=== PATIENT | female | born 1985 | race African-American/Black ===

== ENCOUNTER 2021-03-17 17:21 | Emergency (ER) | payer MEDICAID ==
[~2021-03-17] VITALS: Ht 160 cm; Wt 61.3 kg
[2021-03-17 22:23] VITALS: BP 140/85
[2021-03-18] MEDS: FAMOTIDINE 20 MG/2 ML VIAL IVP ONE
[2021-03-18] MEDS: ONDANSETRON PF 4 MG/2 ML VIAL. IVP ONE (00:01)
[2021-03-18] MEDS ORDERED: FAMOTIDINE 20 MG TABLET. ONE (00:06)
[2021-03-18] MEDS: ONDANSETRON ODT 4 MG TAB.RAPDIS. PO ONE (00:09)
[2021-03-18] MEDS: FAMOTIDINE 20 MG TABLET. PO ONE (00:09)
[2021-03-18] MEDS: LIDO:MAALOX 1:1 20 ML SINGLE DOSE. SWSW ONE (00:09)
[2021-03-18 00:24] LABS: BILIRUBIN,URINE SMALL (NEG); CLARITY,URINE CLEAR; COLOR,URINE AMBER; NITRITE,URINE NEGATIVE (NEG); PROTEIN,URINE 30 mg/dL (NEG-TRACE)
[2021-03-18 00:31] LABS: BARBITURATES NEG (NEG); BENZODIAZEPINES NEG (NEG); CANNABINOIDS NEG (NEG); COCAINE POS (NEG); METHADONE NEG (NEG); OPIATES NEG (NEG); PHENCYCLIDINE NEG (NEG)
[2021-03-18 00:32] LABS: BACTERIA,URINE MODERATE /HPF (0-FEW)
[2021-03-18 00:34] LABS: AMPHETAMINE/METHAMPHETAMINE NEG (NEG)
[2021-03-18] MEDS ORDERED: DICY20TA PO (01:18)
[2021-03-18] MEDS ORDERED: ONDA4TAB12 PO (01:18)
[2021-03-18] MEDS ORDERED: FAMO20TA5 PO (01:18)
--- NOTE | 2021-03-18 01:19 | PHYS DOC ---
Past Medical History Past Surgical History: Other Additional Past Surgical Histo: hernia repair Smoking Status: Never Smoker Alcohol Use: Occasionally General Adult EDM: Chief Complaint: ABDOMINAL PAIN HPI: HPI: Patient is a 35 year old female who presents to the ED today complaining of 10 out of 10 epigastric abdominal pain, symptoms have been going on intermittently for months. Patient is also complaining of nausea and vomiting. She reports vomiting twice in the last 24 hours. Patient denies anything specifically exacerbating or relieving her pain. She is very decisive in her HPI. She states she is she has been evaluated before for this pain. She states she was seen at [facility] a month ago had a full work-up and was given GI cocktail, Pepcid and Zofran. She states she was told to follow-up with GI for an EGD. She states she has an appointment with her PCP on March 26, 2021. She presents today requesting something for her pain. She states there is nothing new about her pain. Review of Systems: Review of Systems: Constitutional: Denies fever or chills. [] Eyes: Denies change in visual acuity. [] HENT: Denies nasal congestion or sore throat. [] Respiratory: Denies cough or shortness of breath. [] Cardiovascular: Denies chest pain or edema. [] GI: Reports epigastric abdominal pain with nausea and vomiting, denies bloody stools or diarrhea. [] : Denies dysuria. [] Musculoskeletal: Denies back pain or joint pain. [] Integument: Denies rash. [] Neurologic: Denies headache, focal weakness or sensory changes. [] ] Psychiatric: Denies depression or anxiety. [] Heart Score: C/O Chest Pain: N/A Risk Factors: Risk Factors: DM, Current or recent (<one month) smoker, HTN, HLP, family history of CAD, obesity. Risk Scores: Score 0 - 3: 2.5% MACE over next 6 weeks - Discharge Home Score 4 - 6: 20.3% MACE over next 6 weeks - Admit for Clinical Observation Score 7 - 10: 72.7% MACE over next 6 weeks - Early Invasive Strategies Current Medications: Current Medications Medications (Trade) Dose Ordered Sig/Yamilex Start Time Stop Time Status Last Admin Dose Admin Famotidine (Pepcid Vial) 20 mg 1X ONCE 03/18/21 00:30 03/18/21 00:03 DC Famotidine (Pepcid) 20 mg STK-MED ONCE 03/18/21 00:06 03/18/21 00:06 DC Multi-Ingredient Mouthwash/Gargle (Gi Cocktail) 20 ml 1X ONCE 03/18/21 00:30 03/18/21 00:31 DC 03/18/21 00:09 20 ML Ondansetron HCl (Zofran Odt) 4 mg 1X ONCE 03/18/21 00:30 03/18/21 00:31 DC 03/18/21 00:09 4 MG Ondansetron HCl (Zofran) 4 mg 1X ONCE 03/18/21 00:30 03/18/21 00:03 DC Allergies: Allergies: Allergies Coded Allergies Type Severity Reaction Last Updated Verified No Known Drug Allergies 03/17/21 No Physical Exam: PE: Constitutional: Well developed, well nourished, no acute distress, non-toxic appearance. [] HENT: Normocephalic, atraumatic, bilateral external ears normal, oropharynx moist, no oral exudates, nose normal. [] Eyes: PERRLA, EOMI, conjunctiva normal, no discharge. [] Neck: Normal range of motion, no tenderness, supple, no stridor. [] Cardiovascular:Heart rate regular rhythm, no murmur [] Lungs & Thorax: Bilateral breath sounds clear to auscultation [] Abdomen: Bowel sounds normal, soft, tenderness to the epigastric abdomen, no right upper quadrant or right lower quadrant tenderness, no masses, no pulsatile masses. [] Skin: Warm, dry, no erythema, no rash. [] Back: No tenderness, no CVA tenderness. [] Extremities: No tenderness, no cyanosis, no clubbing, ROM intact, no edema. [] Neurologic: Alert and oriented X 3, normal motor function, normal sensory function, no focal deficits noted. [] Psychologic: Affect normal, judgement normal, mood normal. [] Current Patient Data: Labs: Laboratory Tests Test 03/18/21 00:15 03/18/21 00:16 Urine Collection Type Void Urine Color [place] Urine Clarity Clear Urine pH 6.0 (<5.0-8.0) Urine Specific [place] >=1.030 (1.000-1.030) Urine Protein 30 mg/dL (NEG-TRACE) Urine Glucose (UA) Negative mg/dL (NEG) Urine Ketones (Stick) >=80 mg/dL (NEG) Urine Blood Negative (NEG) Urine Nitrite Negative (NEG) Urine Bilirubin Small (NEG) Urine Urobilinogen Dipstick 1.0 mg/dL (0.2 mg/dL) Urine Leukocyte Esterase Negative (NEG) Urine RBC 1-2 /HPF (0-2) Urine WBC 1-4 /HPF (0-4) Urine Squamous Epithelial Cells Many /LPF Urine Bacteria Moderate /HPF (0-FEW) Urine Mucus Mod /LPF Urine Opiates Screen Neg (NEG) Urine Methadone Screen Neg (NEG) Urine Barbiturates Neg (NEG) Urine Phencyclidine Screen Neg (NEG) Urine Amphetamine/Methamphetamine Neg (NEG) Urine Benzodiazepines Screen Neg (NEG) Urine Cocaine Screen Pos (NEG) Urine Cannabinoids Screen Neg (NEG) Urine Ethyl Alcohol Neg (NEG) POC Urine HCG, Qualitative Hcg negative (Negative) Vital Signs: Vital Signs Date Time Temp Pulse Resp B/P (MAP) Pulse Ox O2 Delivery O2 Flow Rate FiO2 03/17/21 22:23 94 18 140/85 (103) 99 Room Air 03/17/21 17:40 98.8 98.8 EKG: EKG: [] Radiology/Procedures: Radiology/Procedures: [] Course & Med Decision Making: Course & Med Decision Making Pertinent Labs and Imaging studies reviewed. (See chart for details) This is a 35-year-old female patient presenting to the ED today complaining of epigastric pain that has been going on for months. Patient reports being seen at [facility] month ago and was worked out, she states the request that she follows up with a GI doctor for EGD if her pain persist. She states she has not made an appointment with the GI doctor but has an appointment with her PCP on March 26, 2021. She was given Zofran, GI cocktail and famotidine UDS positive for cocaine use. Negative for nitrites, negative for leukocytes. I inquired from patient about this cocaine use. She states she was drinking on Monday and used cocaine. Informed patient I will send her home to follow-up with GI for her EGD as well as PCP. Patient started begging for pain medicine. She asked me with pain medicine I will send her home with. Informed will give a famotidine, prednisone and dicyclomine. Patient stated this will not work for her. She states she came "all this way" for pain medicine. Informed patient I do not have any indication of sending her home with anything stronger than what is mentioned. Recommended Tylenol or Motrin. She states those do not work for her. Informed patient we will not send her home with any narcotics. She started begging and pleading her case for pain medicine. Informed patient she can follow-up with GI, pain clinic and PCP otherwise there is no indication for any narcotics from the ED. Dragon Disclaimer: Dragon Disclaimer: This electronic medical record was generated, in whole or in part, using a voice recognition dictation system. Departure Departure Impression: Primary Impression: Cocaine use Additional Impression: Epigastric pain Disposition: HOME / SELF CARE / HOMELESS Condition: STABLE Referrals: NO PCP (PCP) SCARLETT AMBRIZ MD follow up the next 1-2 weeks or when they have an opening JENNIFER LARKIN MD follow up on 03-26-2021 as scheduled LUCHO VOSS MD follow up in the next 1-2 weeks Patient Instructions: Abdominal Pain (Nonspecific), Cocaine Abuse and Chemical Dependency Additional Instructions: You were evaluated in the emergency room for epigastric abdominal pain. We provided you a pain clinic doctor and GI doctor, please follow-up with them as soon as possible. Also follow-up with your primary care doctor on March 26, 2021 Scripts Famotidine (FAMOTIDINE) 20 Mg Tablet 20 MG PO DAILY, #14 TAB Prov: STEVEN MARTIN MANAGER OUTPATIENT 03/18/21 Dicyclomine Hcl (DICYCLOMINE HCL) 20 Mg Tablet 1 TAB PO TID, #30 TAB 1 Refill Prov: STEVEN MARTIN MANAGER OUTPATIENT 03/18/21 Ondansetron (ONDANSETRON ODT) 4 Mg Tab.rapdis 1 TAB PO PRN Q6-8HRS, #16 TAB Prov: STEVEN MARTIN MANAGER OUTPATIENT 03/18/21 STEVEN MARTIN MANAGER OUTPATIENT Mar 18, 2021 01:19
--- NOTE | 2021-03-18 08:50 | EKG ---
[facility] [address] [place] [address] Test Date: 2021-03-17 Test Time: 17:49:59 Pat Name: TASHA JORGE Department: Room: Gender: F Personal Care Service Provider: : 1985 Requested By: STEVEN MARTIN Order Number: [id number] Reading MD: Neal Corrae Measurements Intervals [place] Rate: 69 P: 51 SC: 156 QRS: 52 QRSD: 86 T: 22 QT: 370 QTc: 398 Interpretive Statements SINUS RHYTHM LEFT ATRIAL ABNORMALITY Electronically Signed On 03-19-2021 13:10:21 COORDINATOR OF LIBRARY SERVICES by Neal Correa
== END 2021-03-18 01:32 | disposition home or self-care (01) ==
LOC: ER 17:21
DX: R10.13 Epigastric pain (principal); F14.90 Cocaine use, unspecified, uncomplicated; R11.2 Nausea with vomiting, unspecified
CPT/HCPCS: 80307; 81001; 81025; 87086; 93005; 99284